=== PATIENT | female | born 1965 | race Caucasian/White ===

== ENCOUNTER → 2022-02-23 09:28 | Outpatient (BNVA) | payer OTHER, SELFPAY | PROVIDERS: Visit Provider Psychiatry & Neurology Neurology | DX: Z13.89 Encounter for screening for other disorder (principal) ==

== ENCOUNTER → 2022-12-17 14:28 | Outpatient (BNVA) | payer OTHER, SELFPAY | PROVIDERS: PCP Hospitalist; Visit Provider Psychiatry & Neurology Neurology | DX: Z13.89 Encounter for screening for other disorder (principal) ==

== ENCOUNTER 2023-07-01 07:32 | Outpatient (AMB) | payer OTHER, SELFPAY ==
[2023-07-01 07:35] VITALS: BP 130/82; PULSE 88; O2SAT 98
--- NOTE | 2023-07-01 07:35 | A.OFFVIS_ITS ---
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: No Allergies sumatriptan [From Imitrex] Allergy (Unknown, Verified 07/01/23 07:40) Chest Pain Medication List - Last Reconciled 07/01/23 by Elda Xie MD atogepant 30 mg PO DAILY atorvastatin 80 mg PO DAILY buprenorphine-naloxone 8-2 mg (Suboxone) 1 film buccal DAILY etxuqcbxtn-ikjsvpnuypefn-veez 50-300-40 mg 1 cap PO Q8H PRN MDD 3 tabs a day levothyroxine (Levoxyl) 150 mcg PO DAILY lisinopril 10 mg PO DAILY magnesium 400 mg PO BEDTIME promethazine 12.5 mg CO Q6H PRN riboflavin (vitamin B2) 400 mg PO DAILY venlafaxine ER (Effexor XR) 225 mg (3 x 75 mg) PO DAILY HPI HPI Comments History of Present Illness Details 56y/o female comes for follow up of her migraines. she did not respond to nurtec or increase in venlafaxine 150mg qd. But hot flashes are better. she has 3-4 headaches a week and takes fioricet 2-4/day 3 times a week. since her last visit- she had a cardiac stent. In the past she was trialled on gabapentin . topiramate, sumatriptan, emgality , propranolol, amitriptyline,nurtec, pamelor, botox , imitrex with poor response or intolerability.Imitrex helped but stopped due to cardiac disease. Botox helped but expensive. she has 3 migraines a week treated with fioricet- [facility] Medical History CAD (coronary artery disease) Depression HTN (hypertension) Obesity Surgical History Stented coronary artery Social History Alcohol intake: never Patient Tobacco Use Status: Current everyday Tobacco user Physical Exam Vital Signs: Last Vital Signs Pulse 88 07/01/23 07:35 BP 130/82 07/01/23 07:35 Pulse Ox 98 07/01/23 07:35 Oxygen Delivery Method Room Air 07/01/23 07:35 Const General: cooperative and comfortable Nutritional Appearance: overweight Orientation/consciousness: patient oriented x3 Eyes Pupils: Equal, round and reactive pupils present Neuro General: patient oriented x3, tone normal, moves all extremities and no focal motor deficits Cranial nerves: Yes Facial sensation intact/muscles of mastication intact, Yes Equal, round and reactive pupils present, Yes Bilaterally intact EOM present, Yes Nystagmus not present, Yes Normal facial strength present, Yes Midline tongue present, Yes Symmetric palate elevation present and Yes Ability to bilaterally elevate shoulders present Cognition (Neuro): normal cognition Gait exam (Neuro): Normal gait present Motor exam (neuro): 5/5 motor strength present throughout and Normal motor muscle tone present throughout Assessment & Plan Assessment & Plan (1) Migraine with aura: Code(s): G43.109 - Migraine with aura, not intractable, without status migrainosus (2) Depression: Code(s): F32.A - Depression, unspecified Plan I will trial her on atogepant 30mg qd for migraine prophylaxis venlafaxine XR 225mg qd for migraine prophylaxis - patient failed multiple medications, botox and emgality Continue magnesium and vit B 2 will consider namenda Medications: New atogepant 30 mg PO DAILY 30 tabs 6RF riboflavin (vitamin B2) 400 mg PO DAILY 30 tabs 6RF Coding Level of Care Code Est Pt Level 4 (17513) Diagnoses Migraine with aura G43.109 Depression F32.A
== END 2023-07-01 07:58 | disposition home or self-care (01) ==
PROVIDERS: Visit Provider Psychiatry & Neurology Neurology
DX: G43.109 Migraine with aura, not intractable, without status migrainosus (principal); F32.A Depression, unspecified
CPT/HCPCS: 99214

== ENCOUNTER → 2023-07-01 07:32 | Outpatient (BNVA) | payer OTHER, SELFPAY | PROVIDERS: Visit Provider Psychiatry & Neurology Neurology ==

== ENCOUNTER 2024-08-10 08:14 | Outpatient (AMB) | payer OTHER, SELFPAY ==
--- NOTE | 2024-08-10 08:29 | A.OFFVIS_ITS ---
Vital Signs 08/10/24 08:30 Height 5 ft 3 in BP 128/88 Blood Pressure Location Rt brachial Position Sitting Pulse 90 Pulse Oximetry (%) 98 Oxygen Delivery Method Room Air Intake Visit Reasons: Follow up Intake Note: Patient presents for follow up. Patient here for migraines still the same worst since menopause. Allergies sumatriptan [From Imitrex] Allergy (Unknown, Verified 08/10/24 08:31) Chest Pain Medication List - Last Reconciled 08/10/24 by TOM Romeo atogepant 30 mg PO DAILY atorvastatin 80 mg PO DAILY buprenorphine-naloxone 8-2 mg (Suboxone) 1 film buccal DAILY rignowhfez-klvxqjdiwysxr-ulls 50-325-40 mg 1 tab PO Q4H PRN 30 days levothyroxine (Levoxyl) 150 mcg PO DAILY lisinopril 10 mg PO DAILY magnesium 400 mg PO BEDTIME promethazine 12.5 mg DE Q6H PRN riboflavin (vitamin B2) 400 mg PO DAILY venlafaxine ER (Effexor XR) 225 mg (3 x 75 mg) PO DAILY HPI Comments Details: 58-yr-old female presents for f/u visit of migraine. Pt denies any significant interval medical changes. Pt reports she has ~3 migraine days per week. Sleep often helps if she can sleep at onset x's 1 hr. 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 She has tried Nurtec and qulipta, both were ineffective. but had not held Fioricet. She continues to have nocturnal hot flashes though Venlafaxine helps, her last menstrual cycle was 7 yrs ago. Uses phenergen and fioricet 2-4 per migraine day as rescue drugs. Baseline headache characteristics: Started at onset of menarche at age 12, and she has always had strong menstrual migraine. The migraine starts in left neck or left upper trap, into the left eye, left fontal face/temporal. Pain is constant, can be throbbing. A/w left eye tearing, left eye drooping at times, left eye becomes more open, sometimes red eye eye, photophobia, phonophobia, nausea, vomiting. An attack typically lasts hours, until she can sleep. Her BP is currently normotensive. On ASA for the stent, CV prevention. Denies constipation, leg cramps, Raynaud's. [facility] Medical History CAD (coronary artery disease) Obesity Depression HTN (hypertension) Surgical History Stented coronary artery Social History Alcohol intake: never Patient Tobacco Use Status: Current everyday Tobacco user Physical Exam Vital Signs: Last Vital Signs Pulse 90 08/10/24 08:30 BP 128/88 08/10/24 08:30 Pulse Ox 98 08/10/24 08:30 Oxygen Delivery Method Room Air 08/10/24 08:30 Const General: cooperative and no acute distress Orientation/consciousness: patient oriented x3 Resp Effort & Inspection: normal respiratory effort and able to speak in complete sentences Neuro General: patient oriented x3 Cranial nerves: Yes CN's II-XII intact bilaterally Cognition (Neuro): normal cognition Psych Appearance: grossly normal Mental Status: mental status grossly normal Speech and movement: Normal speech and movement present Affect: normal affect Attitude: cooperative Assessment & Plan Assessment & Plan (1) Migraine with aura: Code(s): G43.109 - Migraine with aura, not intractable, without status migrainosus Category: Medical (2) Post menopausal problems: Comment: nocturnal hot flashes Code(s): N95.9 - Unspecified menopausal and perimenopausal disorder Category: Medical Plan For overall headache management: * Optimize good self-care, including but not limited to maintaining a healthy diet, adequate fluid intake, adequate sleep, and engaging in regular physical activity. * Track headaches * Information shared on non-pharmacological interventions which may help to alleviate headache attack burden, such as neuromodulation devices, which can be used alone or with pharmacological treatment. * Information shared on resources on optimizing sleep in setting of nocturnal hot flashes. For acute migraine tx: Pt may continue Fioricet prn. Continue Prmethazine 12.5mg q 6 hrs prn. Previous acute migraine tx's: sumatriptan- was very effective but after her cardiac stent placement caused chest pain: nurtec -ineffective however had not held Fioricet during trial. Acute migarine tx contraindications: All triptans and DHE d/t CAD. Future considerations- revisiting gepant trial if able yo hold fioricet. For migraine prevention: Continue Venlafaxine ER 225mg qd- helps primarily for hot flashes Start Ajovy 225mg/1.5ml autoinjector- injection 225mg subcutaneously once a month. Potential adverse effects of Ajovy include but are not limited to injection site reactions. Pt advised Ajovy will likely require insurance prior authorization. Ajovy should be refrigerated until 1 hr prior use. Once approved and available patient states they will watch kzd-wa-xcwyh on ubitus and self- administer Ajovy at home. If Ajovy also triggers an increase in migraine frequency, consider trying a short course of Plavix. Previous preventive migraine tx's: gabapentin- ineffective, topiramate- ineffective and not tolerated, emgality- had a 33 day migraine after the 1st injection, propranolol- ineffective, amitriptyline- caused tiredness, pamelor/nortriptyline- ineffective, atogepant- ineffective 9however was tried while pt was concomitantly taking fioricet), Botox helped but expensive. Medications: New fremanezumab-vfrm (Ajovy) administer 225mg sc q month 225 mg (1.5 mL) subcut ONCE 30 days 1.5 mL 6RF G43.109 - Migraine with aura, not intractable, without status migrainosus buprenorphine ER (Sublocade) subcut Changed From venlafaxine ER (Effexor XR) 225 mg (3 x 75 mg) PO DAILY 90 caps 3RF To venlafaxine ER (Effexor XR) 225 mg (3 x 75 mg) PO DAILY 30 days 90 caps 6RF Refilled tayprolodw-tskiewfkdsrre-yffi 50-325-40 mg max 2 tabs per day or 4 tabs per week 1 tab PO Q4H 30 days PRN 20 tabs 3RF headache Discontinued atogepant Discontinued Reason: Doctor's Order 30 mg PO DAILY 30 tabs 6RF Coding Level of Care Code Est Pt Level 4 (93454) Diagnoses Migraine with aura G43.109 Post menopausal problems N95.9
[2024-08-10 08:30] VITALS: BP 128/88; PULSE 90; O2SAT 98
== END 2024-08-10 09:46 | disposition home or self-care (01) ==
PROVIDERS: PCP Hospitalist; Visit Provider Nurse Practitioner Family
DX: G43.109 Migraine with aura, not intractable, without status migrainosus (principal); N95.9 Unspecified menopausal and perimenopausal disorder
CPT/HCPCS: 99214

== ENCOUNTER → 2024-08-10 08:14 | Outpatient (BNVA) | payer OTHER, SELFPAY | PROVIDERS: PCP Hospitalist; Visit Provider Nurse Practitioner Family ==

== ENCOUNTER 2025-06-11 07:52 | Outpatient (AMB) | payer OTHER, SELFPAY ==
--- OUTSIDE RECORDS SUMMARY | 2025-06-11 07:55 | XMS_ITS | Clinical Summary ---
Author Organization [facility] Address [address] [place] [address] Care Team Providers Care Inside Phone Sales Name Role Phone Christiano Craven MD Primary Care Provider [phone] Allergies Active Allergy Reactions Criticality Noted Date Comments Sumatriptan High 03/24/2019 Medications Medication Sig Dispensed Refills Start Date End Date Status SUMAtriptan (IMITREX) 50 MG tablet Take 100 mg by mouth every 2 (two) hours as needed for migraine. 0 Active levothyroxine (SYNTHROID, LEVOXYL) tablet 150 mcg Take 150 mcg by mouth every morning on an empty stomach. 0 Active citalopram (CELEXA) 40 MG tablet Take 40 mg by mouth daily. 0 Active buprenorphine-nalox one (SUBOXONE) 8-[address] tablet Place under the tongue daily. 0 Active hydrochlorothiazide (HYDRODIURIL) tablet 25 mg Take 1 tablet (25 mg total) by mouth daily. 15 tablet 0 04/12/2016 Active Additional Information Patient not taking.Reason: Other, Reported on 03/24/2019 Sckgxkqhbb-ESTR-Tvp f-Cod (FIORICET/CODEINE) 94-333-25-30 MG CAPS Take 1-2 capsules by mouth 4 (four) times a day as needed. 20 capsule 0 04/12/2016 Active buPROPion (WELLBUTRIN SR) 150 MG 12 hr tablet Take by mouth. 0 Activ e promethazine (PHENERGAN) 50 MG suppository 0 03/10/2019 Active promethazine (PHENERGAN) [address] 50 mg rectally. 0 03/16/2019 Active butalbital-acetamin sfchk-qomctnwd-gyfs ine (FIORICET WITH CODEINE) 28-742-33-30 MG per capsule Take 1 capsule by mouth every 4 (four) hours as needed for headaches. 12 capsule 0 03/24/2019 Active Active Problems No known active problems Social History Tobacco Use Types Packs/Day Years Used Date Smoking Tobacco: Every Day Cigarettes 0.5 30 Smokeless Tobacco: Never Alcohol Use Standard Drinks/Week Comments No 0 (1 standard drink = 0.6 oz pur e alcohol) Sex and Gender Information Value Date Recorded Sex Assigned at Not on file Gender Identity Not on file Sexual Orientation Not on file Last Filed Vital Signs Vital Sign Reading Time Taken Comments Blood Pressure 132/71 03/24/2019 7:21 PM EDT Pulse 84 03/24/2019 7:21 PM EDT Temperature 36.6 C (97.8 F) 03/24/2019 7:21 PM EDT Respiratory Rate 18 03/24/2019 7:21 PM EDT Oxygen Saturation 99% 03/24/2019 7:21 PM EDT Inhaled Oxygen Concentration - - Weight 81.6 kg (180 lb) 03/24/2019 5:22 PM EDT Height 162.6 cm (5' 4 ) 03/24/2019 5:22 PM EDT Body Mass Index 30.9 03/24/2019 5:22 PM EDT Plan of Treatment Health Maintenance Due Date Last Done Comments Hepatitis B Vaccines (1 of 3 - 3-dose series) 1965 Hepatitis C Screening 1965 COVID-19 Vaccine (#1) 05/13/1966 Pneumococcal Vaccine (1 of 2 - PCV) 1971 Depression Screening 1977 BMI Counseling 1983 Preventative Health Evaluation 1983 Tobacco Cessation Counseling 1983 Cervical Cancer Screening (Pap Smear) 1986 Colon Cancer Screening (Colonoscopy) 2010 Breast Cancer Screening (Mammogram) 2015 Shingrix-Zoster Vaccine (1 o f 2) 2015 DTap / Tdap / Td (2 - Td or Tdap) 12/29/2022 12/29/2012 Influenza Vaccine (#1) 2025 6, 09/02/2008 RSV Ped < 20 months Aged Out No longe r eligible based on patient's age to complete this topic Care Teams Inside Phone Sales Relationship Specialty Start Date End Date Christiano Craven MD [address] [place] [id number] PCP - General Internal Medicine 03/24/19
--- OUTSIDE RECORDS SUMMARY | 2025-06-11 07:55 | XMS_ITS | Clinical Summary ---
Author Organization [address] [place] [address] [place] [phone] Phone Care Team Providers Care Manager Garage Name Role Phone Vahid Villaseñor MD Primary Care Provider [phone] Surgical History Surgery Date Site/Laterality Comments MAMMOGRAM RACQUEL 10/17 PROCEDURE: MAMMOGRAM, SCREENING, BOTH BREASTS; COMMENT: neg LUMBAR LAMINECTOMY PROCEDURE: HISTORICAL LUMB LAMINECTOMY; COMMENT: Sam; Anurag-multiple surgeries CHOLECYSTECTOMY 05/14/10 PROCEDURE: LAPAROSCOPIC CHOLECYSTECT; COMMENT: Aakash HERNIA REPAIR 05/14/10 PROCEDURE: HISTORICAL HERNIA REPAIR/UMB; COMMENT: Aakash BREAST BIOPSY Right PROCEDURE: BX BREAST; PERC NEEDLE CORE W/IMAG GUID; COMMENT: neg Medical History Medical History Date Comments Backache, unspecified 08/08/2007 DX:Backach e, unspecified; COMMENT: Lumbar laminectomy; pseudomeningocoele; fusion; Abassy; Joanne Hypertension 05/01/2012 DX:Hypertension Hyperlipidemia 05/01/2012 DX:Hyperlipidemi a Migraine 09/15/2015 DX:Migraine CAD (coronary artery disease) 01/31/2020 DX :CAD (coronary artery disease) Mood disorder ([facility] V24) 07/12/2021 DX:M ood disorder ([facility]) Drug dependence, in remissio n ([facility] V24, [facility] V28) 07/06/2021 DX:Drug dependence, in remis adrian ([facility]) Hot flashes due to menopause 06/23/2019 DX: Hot flashes due to menopause Hypothyroidism 08/06/2007 DX:Hypothyroidis m Intertrigo 05/11/2019 DX:Intertrigo Lung nodule < 6cm on CT 10/16/2015 DX:Lung nodule < 6cm on CT; COMMENT: CT chest (01/27): 4 mm right lower lobe pulmonary nodule stable when compared with baseline 10/13/2015 study considered benign. No additional imaging surveillance is needed. Macromastia 05/11/2019 DX:Macromastia Neck pain 05/11/2019 DX:Neck pain Nicotine abuse 05/11/2019 DX:Nicotine abus e Obesity (BMI 30-39.9) 05/11/2019 DX:Obesity (BMI 30-39.9) Pain in foot 02/09/2008 DX:Pain in foot Smoking 12/14/2020 DX:Smoking Substance use disorder 06/08/2021 DX:Substa nce use disorder; COMMENT: On suboxone Family History Medical History Relation Name Comments Coronary artery disease Father Hypertension Father Coronary artery disease Grandparent Coronary artery disease Mother Hypertension Mother Breast cancer Neg Hx Relation Name Status Comments Brother Alive HTN Father HTN, [place] Grandparent Mother Alive HTN, Holi1PP, M I age 63, Sister Alive HTN Social History Tobacco Use Types Packs/Day Years Used Date Smoking Tobacco: Every Day Cigarettes Smokeless Tobacco: Never Alcohol Use Standard Drinks/Week Comments No 0 (1 standard drink = 0.6 oz pur e alcohol) Comments Unknown Sex and Gender Information Value Date Recorded Sex Assigned at Not on file Legal Sex Female 8:33 AM EST Gender Identity Not on file Sexual Orientation Not on file Obstetrics History Last Filed Vital Signs Vital Sign Reading Time Taken Comments Blood Pressure 132/66 09/01/2024 10:00 AM EDT Pulse 70 09/01/2024 10:00 AM EDT Temperature - - Respiratory Rate - - Oxygen Saturation - - Inhaled Oxygen Concentration - - Weight - - Height - - Body Mass Index - - Plan of Treatment Health Maintenance Due Date Last Done Comments Hepatitis B Vaccines (1 of 3 - 19+ 3-dose series) 1984 Pneumococcal Vaccine: 50+ Years (1 of 2 - PCV) 1984 Zoster Vaccines (1 of 2) 2015 Cholesterol Screening (Lipid Panel) 10/14/2022 Colorectal Cancer Screening: Colonoscopy 10/14/2022 HIV Screening 10/14/2022 Hepatitis C Screening 10/14/2022 Social Influencers of Health Screening 10/14/2022 Hypertension/CHF/CAD Annual BMP Blood Test 10/25/2022 DTaP,Tdap,and Td Vaccines (3 - Td or Tdap) 12/29/2022 12/29/2012, 11/11/2005 Breast Cancer Screening 02/01/2023 02/02/20 21, 09/03/2019, 08/28/2018, Additional history exists Cervical Cancer Screening: Pap Smear 09/30/2023 09/30/2020 COVID-19 Vaccine (3 - 2023- season) 2024 12/27/2020, 11/29/2020 Depression Screening 11/11/2024 Influenza Vaccine (#1) 2025 , 08/02/2016, 09/02/2008 RSV Immunization Adult Patients (1 - 1-dose 75+ series) 2040 HIB Vaccines Aged Out No longer eligi ble based on patient's age to complete this topic HPV Vaccines Aged Out No longer eligi ble based on patient's age to complete this topic Hepatitis A Vaccines Aged Out No long er eligible based on patient's age to complete this topic IPV Vaccines Aged Out No longer eligi ble based on patient's age to complete this topic MMR Vaccines Aged Out No longer eligi ble based on patient's age to complete this topic Meningococcal ACWY Vaccine Aged Out N o longer eligible based on patient's age to complete this topic Meningococcal B Vaccine Aged Out No l onger eligible based on patient's age to complete this topic RSV Immunization Patients Under 20 months Aged Out No longer eligible based on patient's age to complete this topic Varicella Vaccines Aged Out No longer eligible based on patient's age to complete this topic Procedures Procedure Name Priority Date/Time Associated Diagnosis Comments SCR MAMMO BI INCL CAD Routine 02/01/2021 8:11 AM EDT Encounter for screening mammogram for malignant neoplasm of breast PAP SMEAR Routine 09/30/2020 from Last 3 Months or Most Recently Relevant to Health Maintenance Results * SCR MAMMO BI INCL CAD (02/01/2021 8:11 AM EDT) Anatomical Region Laterality Modality Radiographic Emmy ging 09/03/2019 9:00 AM EDT Narrative 02/01/2021 2:02 PM EDT This is a summary report. The complete report is available in the patient's medical record. If you cannot access the medical record, please contact the sending organization for a detailed fax or copy. Full field digital screening mammography, reviewed with CAD and compared to previous mammograms dating back to 08/20/2017 with most recent of 09/03/2019. The breasts are composed of fatty and fibroglandular tissue. No suspicious mass, architectural distortion or suspicious calcifications are identified. IMPRESSION: : No mammographic evidence of malignancy. BIRADS 1-Negative; N. 5 year breast cancer risk assessment 1.6 % Lifetime breast cancer risk assessment 10.7 % Breast cancer risk category Low (<15%) Procedure Note Lary Kenyon MD - 10/30/2022 This is a summary report. The complete report is available in thepatient's medical record. If you cannot access the medical record, pleasecontact the sending organization for a detailed fax or copy. Full field digital screening mammography, reviewed with CAD and comparedto previous mammograms dating back to 08/20/2017 with most recent of09/03/2019. The breasts are composed of fatty and fibroglandular tissue.No suspicious mass, architectural distortion or suspicious calcificationsare identified. IMPRESSION: : No mammographic evidence of malignancy. BIRADS 1-Negative; N. 5 year breast cancer risk assessment 1.6 % Lifetime breast cancer risk assessment 10.7 % Breast cancer risk category Low (<15%) Reshma Giang DO IMG XR PROCEDURES Final Result * Pap smear (09/30/2020) 09/30/2020 Narrative HISTORICAL TESTING LAB RESULTING AGENCY - 10/04/2020 1:16 PM EST [id number] THINPREP PAP, IMAGED: NEGATIVE FOR SQUAMOUS INTRAEPITHELIAL LESION AND MALIGNANCY . CLARI BETH , YESICA(ASCP) (CASE ELECTRONICALLY SIGNED 10 04 2020) RESULT OF APTIMA HIGH RISK HPV ASSAY: HIGH RISK HPV: NEGATIVE (SEROTYPES 16,18,31,33,35,39,45,51,52,56,58,59,66,68) COMPLETED ON 2020-10-04 ADEQUACY: SATISFACTORY ENDOCERVICAL/TRANSFORMATION ZONE COMPONENT PRESENT. SOURCE: THINPREP PAP HPV ANY DX: REFLEX 16 AND 18, CERVICAL, IMAGED CLINICAL INFORMATION: HPV ANY DIAGNOSIS. HORMONES, PAP HX NEG, LMP 08/08/16 [Z12.4, Z01.419] Reshma Giang DO LAB CYTOLOGY ORDERABLES Final Result HISTORICAL TESTING LAB RESULTING AGENCY from Last 3 Months or Most Recently Relevant to Health Maintenance Insurance [facility] Care Teams Manager Garage Relationship Specialty Start Date End Date Vahid Villaseñor MD [facility] [place] PCP - General Internal Medicine 01/18/22
--- OUTSIDE RECORDS SUMMARY | 2025-06-11 07:55 | XMS_ITS | Patient Health Record ---
Author Organization [facility] Address [address] [place], [place] [id number] Care Team Providers Care Fast Food Cook Name Role Phone ALIS MARTINEZ Primary Care Provider Reason For Referral No Information Medications Medication SIG (Take, Route, Frequency, Duration) Notes Start Date End Date Status ZyrTEC 1 po as needed for nausea Zyrtec 10 mg, Oral Cap; COMMENTS : ; 01/06/2012 Active Medrol (Malcolm) take as directed Medrol (Malcolm) 4 mg Tabs in a Dose Pack; Notes : take as directed; 01/06/2012 Active Levoxyl Levoxyl; COMMENT S : ; 01/06/2012 Active Dilaudid Dilaudid 2 mg Tab 01/06/2012 Active Problems Problem Type SNOMED Code ICD Code Onset Dates Problem Status W/U Status Risk Notes Problem Sciatica (73525791) Sciatica/Left (724.3) 01/06/20 12 Active confirmed ame-Sciatica/L eft Problem Disorder of back (64674984) Other Unspecified Back Disorders/Left (724.9) 01/06/20 12 Active confirmed ame-Other Unspecified Back Disorders/Left Plan Of Treatment No Information Insurance Providers Payer Name Payer Address Payer Phone Subscriber Number Group Number Insured Name Patient Relationship to Insured Coverage Start Date Coverage End Date [employer]- [place] [address] [place] [address] [id number] Almita Heller Self - patient is the insured
[2025-06-11 08:05] VITALS: BP 110/72; PULSE 80; O2SAT 99
--- NOTE | 2025-06-11 08:05 | A.OFFVIS_ITS ---
Vital Signs 06/11/25 08:05 Height 5 ft 3 in BMI Reason not done Patient refused/unable BP 110/72 Blood Pressure Location Lt brachial Position Sitting Pulse 80 Pulse Source Pulse Oximeter Pulse Oximetry (%) 99 Oxygen Delivery Method Room Air Intake Visit Reasons: Follow up Intake Note: Patient presents follow up Migraine medication. No changes. 11/09 days for migraine Allergies sumatriptan (From Imitrex) Allergy (Unknown, Verified 06/11/25 08:08) Chest Pain Medication List - Last Reconciled 06/11/25 by TOM Romeo atorvastatin 80 mg PO DAILY rzsvdktupn-ucxzpsdwolhgo-psic 50-325-40 mg 1 cap PO Q4H PRN 30 days MDD 4 caps per day jqwnqsphqs-romvnqengrtuu-ojlj 50-325-40 mg 1 tab PO Q4H PRN 30 days levothyroxine (Levoxyl) 150 mcg PO DAILY lisinopril 10 mg PO DAILY magnesium 400 mg PO BEDTIME onabotulinumtoxinA (Botox) 200 units IM ONCE 12 weeks promethazine 12.5 mg DC Q6H PRN riboflavin (vitamin B2) 400 mg PO DAILY trazodone 100 mg PO BEDTIME PRN venlafaxine ER (Effexor XR) 225 mg (3 x 75 mg) PO DAILY 30 days zavegepant 10 mg/actuation (Zavzpret) 10 mg intranasal ONCE PRN 30 days HPI Comments Details: 59-yr-old female presents for f/u visit of migraine. Pt denies any significant interval medical changes. Pt reports she has 4 migraine days per week. She did not start Ajovy d/t the idea of starting this triggered anxiety d/t her previous response to emgality- which she states was a severe prolonged migraine starting on the day that evening she took the 1st injection. She continues to have nocturnal hot flashes though Venlafaxine helps, her last menstrual cycle was 7+ yrs ago. Uses phenergen and fioricet caps 2-4 per migraine day as rescue treatment. Baseline headache characteristics: Started at onset of menarche at age 12, and she has always had strong menstrual migraine. The migraine starts in left neck or left upper trap, into the left eye, left fontal face/temporal. Pain is constant, can be throbbing. A/w left eye tearing, left eye drooping at times, left eye becomes more open, sometimes red eye eye, photophobia, phonophobia, nausea, vomiting. An attack typically lasts hours, until she can sleep. Her BP is currently normotensive. Compliant with lisinopril Compliant with ASA, Statin for the stent, CV prevention. Denies constipation, leg cramps, Raynaud's. [facility] Medical History CAD (coronary artery disease) Obesity Depression HTN (hypertension) Surgical History Stented coronary artery Social History Alcohol intake: never Patient Tobacco Use Status: Current everyday Tobacco user Physical Exam Vital Signs: Last Vital Signs Pulse 80 06/11/25 08:05 BP 110/72 06/11/25 08:05 Pulse Ox 99 06/11/25 08:05 Oxygen Delivery Method Room Air 06/11/25 08:05 Const General: cooperative and no acute distress Orientation/consciousness: patient oriented x3 Resp Effort & Inspection: normal respiratory effort and able to speak in complete sentences Neuro General: patient oriented x3 Cranial nerves: Yes CN's II-XII intact bilaterally Cognition (Neuro): normal cognition Psych Appearance: grossly normal Mental Status: mental status grossly normal Speech and movement: Normal speech and movement present Affect: normal affect Attitude: cooperative Assessment & Plan Assessment & Plan (1) Chronic migraine without aura without status migrainosus, not intractable: Code(s): G43.709 - Chronic migraine without aura, not intractable, without status migrainosus Category: Medical (2) Migraine with aura: Code(s): G43.109 - Migraine with aura, not intractable, without status migrainosus Category: Medical Qualifiers: Intractability: not intractable Status migrainosus presence: without status migrainosus Qualified Code(s): G43.109 - Migraine with aura, not intractable, without status migrainosus (3) Post menopausal problems: Comment: nocturnal hot flashes Code(s): N95.9 - Unspecified menopausal and perimenopausal disorder Category: Medical Plan For overall headache management: * Optimize good self-care, including but not limited to maintaining a healthy diet, adequate fluid intake, adequate sleep, and engaging in regular physical activity. * Track headaches * Information shared on non-pharmacological interventions which may help to alleviate headache attack burden, such as neuromodulation devices, which can be used alone or with pharmacological treatment. * Information shared on resources on optimizing sleep in setting of nocturnal hot flashes. For acute migraine tx: Pt may continue Fioricet capsule prn. Continue Prmethazine 12.5mg q 6 hrs prn. Start Zavzprat 10mg- inhale 1 10 mg nasal spray into 1 nostril at onset of migraine attack, max of 1 nasal spray per day. Previous acute migraine tx's: sumatriptan- was very effective but after her cardiac stent placement caused chest pain: nurtec -ineffective however had not held Fioricet during trial. Acute migarine tx contraindications: All triptans and DHE d/t CAD. Future considerations- revisiting oral gepant trial if Zavzprat trial is effective. For chronic migraine prevention: Continue Venlafaxine ER 225mg qd- helps primarily for hot flashes Discontinue Ajovy 225mg/1.5ml autoinjector- pt is not comfortable starting. Start Botox 155 units IM per preempt protocol- as pt previously had good effect from use. Previous preventive migraine tx's: gabapentin- ineffective, topiramate- ineffective and not tolerated, emgality- had a 33 day migraine after the 1st injection, propranolol- ineffective after 8 weeks, amitriptyline- caused tiredness, pamelor/nortriptyline- ineffective, atogepant- ineffective, Botox hel ped but expensive. Medications: New onabotulinumtoxinA (Botox) inject 155 units IM across forehead, scalp, and neck 200 units IM ONCE 1 ea 3RF 12 weeks G43.709 - Chronic migraine without aura, not intractable, without status migrainosus zavegepant 10 mg/actuation (Zavzpret) 10 mg intranasal ONCE PRN 6 ea 6RF migraine headache 30 days Coding Level of Care Code Est Pt Level 4 (46180) Diagnoses Chronic migraine without aura without status migrainosus, not intractable G43.709 Migraine with aura and without status migrainosus, not intractable G43.109 Intractability: not intractable Status migrainosus presence: without status migrainosus Post menopausal problems N95.9
== END 2025-06-11 09:01 | disposition home or self-care (01) ==
LOC: HO.HSMS 07:53
PROVIDERS: PCP Hospitalist; Visit Provider Nurse Practitioner Family
DX: G43.709 Chronic migraine without aura, not intractable, without status migrainosus (principal); G43.109 Migraine with aura, not intractable, without status migrainosus; N95.9 Unspecified menopausal and perimenopausal disorder
CPT/HCPCS: 99214